=== PATIENT | male | born 1960 | race African-American/Black ===

== ENCOUNTER 2022-02-05 11:14 | Emergency (ER) | payer MEDICAID, OTHER | END 2022-02-05 13:07 | disposition home or self-care (01) | LOC: ERS 11:14 | DX: S90.862A Insect bite (nonvenomous), left foot, initial encounter (principal); L25.9 Unspecified contact dermatitis, unspecified cause; I10 Essential (primary) hypertension; E11.40 Type 2 diabetes mellitus with diabetic neuropathy, unspecified; E78.5 Hyperlipidemia, unspecified; M19.90 Unspecified osteoarthritis, unspecified site; W57.XXXA Bitten or stung by nonvenomous insect and other nonvenomous arthropods, initial encounter | CPT/HCPCS: 99282 ==